=== PATIENT | male | born 1980 | race Two or more races ===

== ENCOUNTER 2019-04-15 06:00 | Emergency (ER) | payer OTHER, MEDICAID ==
[~2019-04-15] VITALS: Ht 165.1 cm; Wt 87.5 kg
[2019-04-15 06:06] VITALS: BP 133/73
[2019-04-15] MEDS ORDERED: IBUPROFEN 600 MG TABLET PO ONE (06:24)
[2019-04-15] MEDS: IBUPROFEN 600 MG TABLET PO ONE (06:29)
== END 2019-04-15 06:34 ==
LOC: ER 06:02
DX: S01.111A Laceration without foreign body of right eyelid and periocular area, initial encounter (principal); F10.10 Alcohol abuse, uncomplicated; Y90.9 Presence of alcohol in blood, level not specified; Z02.89 Encounter for other administrative examinations; Y08.89XA Assault by other specified means, initial encounter; Y93.89 Activity, other specified; Y92.89 Other specified places as the place of occurrence of the external cause; Y99.8 Other external cause status